=== PATIENT | male | born 1955 | race Caucasian/White ===

== ENCOUNTER 2018-11-16 15:25 | Inpatient (IN) ==
[2018-11-16] MEDS ORDERED: HYDROmorphone INJ 1 MG/ML SYRINGE IV STA ×2 (15:57→18:33)
[2018-11-16] MEDS ORDERED: ONDANSETRON INJ 2 MG/ML 2 ML VIAL IV STA (15:57)
[2018-11-16] MEDS ORDERED: SODIUM CHLORIDE 0.9% 1000ML 1,000 ML IV SCH (16:00)
[2018-11-16 16:34] LABS: Basophils # (auto) 0.02 K/uL (0-0.2); Basophils % (auto) 0.3 %; Eosinophils # (auto) 0.06 K/uL (0-0.5); Eosinophils % (auto) 0.9 %; Hematocrit (blood only) 44.7 % (42-52); Hemoglobin 16.3 g/dL (14.0-18.0); Immature Granulocytes # (auto) 0.02 K/uL (0.00-0.02); Immature Granulocytes % (auto) 0.3 %; Lymphocytes # (auto) 2.02 K/uL (1.2-3.4); Lymphocytes % (auto) 30.4 %; Mean Corpuscular Hgb Conc 36.5 g/dL (32-36); Mean Corpuscular Volume 91.2 fL (80-100); Mean Platelet Volume 9.8 fL (7.4-10.4); Monocytes # (auto) 0.52 K/uL (0.11-0.59); Monocytes % (auto) 7.8 %; Neutrophils # (auto) 4.01 K/uL (1.4-6.5); Neutrophils % (auto) 60.3 %; Platelet Count 149 K/uL (130-400); RDW Coefficient of Variation 12.6 % (11.5-14.5); RDW Standard Deviation 42.2 fL (36.4-46.3); White Blood Count 6.65 K/uL (4.8-10.8)
[2018-11-16 16:51] LABS: Albumin Level 4.2 gm/dl (3.4-5.0); BUN Creatinine Ratio 19.4 (10-20); Bilirubin Direct 0.1 mg/dl (0-0.2); Calcium 9.2 mg/dl (8.5-10.1); Creatinine Clr Calc Pharmacy 62.2 ml/min; Est GFR (Non-African American) 53.5; Potassium 3.5 mmol/L (3.5-5.1)
[2018-11-16 16:54] LABS: Bilirubin,Total 0.6 mg/dl (0.2-1); Total Protein 7.9 gm/dl (6.4-8.2)
[2018-11-16] MEDS ORDERED: IOVERSOL 100ml IV PRN (17:54)
--- NOTE | 2018-11-16 18:17 | CT Scan Report ---
CT OF THE ABDOMEN AND PELVIS WITH CONTRAST CLINICAL HISTORY: Left lower quadrant pain. Hernia. Evaluate for incarceration. COMPARISON STUDY: None. TECHNIQUE: Following IV administration of 94 mL of Optiray-320, axial images of the abdomen and pelvi s were obtained from the lung bases to the proximal femurs. Images were reviewed in the axial, sagitt al, and coronal planes. IV contrast was administered without complication. Automated exposure contro l was utilized for the study. A dose lowering technique was utilized adhering to the principles of A SHANIKA. CT DOSE: 775.69 mGy.cm FINDINGS: Lung bases are unremarkable. The liver, spleen, adrenal glands and pancreas are unremarkabl e. There is no biliary or pancreatic ductal dilatation. There are multiple small stones within each k idney that measure up to 4 mm. There are no ureteral calculi. There is no hydronephrosis. A 1 cm hypo dense lesion within the midpole of the right kidney is too small to characterize but favors a cyst. A loop of small bowel is located within a left inguinal hernia. There is mild uptake small bowel dilat ation. Distal small bowel is decompressed. No right inguinal hernia is present. There are no suspicio us osseous lesions. There is no lymphadenopathy. No bowel wall thickening is noted. There is a small amount of fluid within the left inguinal hernia sac. Major vasculature is patent. IMPRESSION: 1. Left inguinal hernia which contains a loop of small bowel with resultant mild small bowel dilatati on. This represents a small bowel obstruction related to the left inguinal hernia. Small amount of fl uid within the left hernia sac. 2. Bilateral nephrolithiasis. Electronically signed by: Harry Fall M.D. 11/16/2018 6:16 PM
[2018-11-16] MEDS ORDERED: CIPROFLOXACIN 400 MG/200 ML BAG IV STA (19:00)
--- NOTE | 2018-11-16 19:09 | XRay Report ---
XR chest 1V portable CLINICAL HISTORY: preop COMPARISON STUDY: Chest radiograph February 21, 2013. FINDINGS: Lung volumes are mildly diminished. There is no pneumothorax or pleural effusion. Mild biba silar opacities favor atelectasis. There is borderline cardiomegaly without evidence for pulmonary ed juan. Postoperative findings within the cervical spine are partially imaged. IMPRESSION: 1. No acute cardiopulmonary findings. 2. Borderline cardiomegaly. Electronically signed by: Harry Fall M.D. 11/16/2018 7:08 PM
--- NOTE | 2018-11-16 19:18 | History & Physical Report ---
Date of Service November 16, 2018 Assessment & Plan (1) Incarcerated left inguinal hernia: We will plan to proceed with open repair of left inguinal hernia consent was obtained at this time the procedure been explained to the patient extensively including possibility of bowel resection Risk and complications were all explained to home and he would like to proceed accordingly Clinical watch manufacturing supervisor in the OR will personally notified at 755 and they were aware that this is an emergency Chest x-ray and EKG is pending at this time CT scan was reviewed as was his lab Present on Admission?: Yes History of Present Illness This is a 63-year-old gentleman who I was asked to see in the emergency room at approximately 645 this evening for an incarcerated left inguinal hernia that the ER physician was unable to reduce and CT scan which was done at approximately 345 today showed contents of the small bowel in the hernia This gentleman is known to have had a hernia in the left inguinal area for some time in the last 48 hours it began bothering him somewhat yesterday after he took a long walking he had a hard time reducing it was associated with some nausea no emesis and this morning when he woke up around 12:00 AM significant pain and unable to reduce the hernia He stated that he had a regular lunch at that time at the present time he denies any nausea but states that he had an antiemetic Primary Care Provider: Mehreen Noyola DO Allergies Allergy/AdvReac Type Severity Reaction Status Date / Time vancomycin Allergy Severe red man Verified 11/16/18 16:47 syndrome Penicillins Allergy Unknown ITCH Unverified 11/16/18 16:46 Sulfa (Sulfonamide Allergy Unknown ITCH Unverified 11/16/18 16:46 Antibiotics) codeine Allergy itch Verified 11/16/18 16:46 morphine Allergy itch Verified 11/16/18 16:46 piroxicam [From Feldene] Allergy Unknown Verified 11/16/18 16:47 Home Medications Home Medications Medication Instructions Recorded Confirmed Type Unknown Hiv Med 1 tab PO DAILY 11/16/18 11/16/18 History Water Pill 1 tab PO DAILY 11/16/18 11/16/18 History albuterol sulfate [Ventolin HFA] 2 puff INHALATION Q6H PRN 11/16/18 11/16/18 History cholecalciferol (vitamin D3) 1,000 unit PO DAILY 11/16/18 11/16/18 History [Vitamin D3] doxepin 150 mg PO HS 11/16/18 11/16/18 History duloxetine 60 mg PO DAILY 11/16/18 11/16/18 History epinephrine [EpiPen] 0.3 mg IM UD PRN 11/16/18 11/16/18 History lisinopril 10 mg PO DAILY 11/16/18 11/16/18 History loratadine-pseudoephedrine 1 tab PO DAILY 11/16/18 11/16/18 History [Loratadine-D] meloxicam 15 mg PO DAILY 11/16/18 11/16/18 History metformin 0 mg PO BID 11/16/18 11/16/18 History multivitamin-ferrous sulfate [One 0 mg PO DAILY 11/16/18 11/16/18 History Daily Multivitamin-Iron] trazodone 150 mg PO HS 11/16/18 11/16/18 History Past Med/Surg History Social History Preferred Language: Vietnamese Feels Safe at Home: Yes Smoking Status: Never smoker Immunizations: His past medical history included some mild hypertension neck surgery right inguinal hernia repair years ago he has a history of HIV which is appropriately treated and he states is in remission When he had neck surgery he had vancomycin and developed a red man syndrome He has multiple allergies including penicillin and sulfa he states that he could take Cipro Physical Exam Constitutional: WD/WN, vitals as above well developed and well nourished Very large caro una extends into upper chest Eyes: PERRL, conjunctivae normal, anicteric sclerae ENMT: external ear and nose normal, oropharynx normal Neck: trachea midline, no thyromegaly Respiratory: normal respiratory effort, lungs clear to auscultation Cardiovascular: RRR, no murmur, no edema Gastrointestinal (Abdomen): No localized tenderness except a hard to reduce golf ball sized hernia in the left inguinal area appears to be incarcerated at the external ring the testes is normal there is no evidence of cellulitis at this time but it is exquisitely tender to try to reduce it that I am unable to Results & Data Vital Signs (Past 12 Hours) Vital Signs Temp Pulse Pulse Resp BP BP Pulse Ox 11/16/18 17:42 97 H 18 124/85 93 11/16/18 16:38 96 H 15 138/80 95 11/16/18 15:31 36.9 C 99 H 22 142/88 H 98 PG Care Time/CCT Total # of Minutes Spent Total Time Spent with Patient: Total time spent is greater than 50% in coordination of care (as documented) at patient's floor/unit and/or counseling patient:
--- NOTE | 2018-11-16 19:30 | Anesthesiology Consultation ---
Date of Service November 16, 2018 Assessment & Plan Chart Review Chart Review: Acceptable Risk for Surgery and Patient NOT seen in Pre Admission Testing Consults Requested none ASA [id number] Proposed Anesthesia Anesthesia Type: General Risk / Benefits Reviewed With: PT / POA / Parent / Guardian, Accepts Plan and Informed Consent Obtained History Surgery Operation Date: 11/16/18 19:10 Proposed Procedures p Inguinal Hernia Repair - Jarad Go MD Height/Weight Height: 5 ft 9 in Weight: 94.9 kg Allergies Allergy/AdvReac Type Severity Reaction Status Date / Time vancomycin Allergy Severe red man Verified 11/16/18 16:47 syndrome Penicillins Allergy Unknown ITCH Unverified 11/16/18 16:46 Sulfa (Sulfonamide Allergy Unknown ITCH Unverified 11/16/18 16:46 Antibiotics) codeine Allergy itch Verified 11/16/18 16:46 morphine Allergy itch Verified 11/16/18 16:46 piroxicam [From Feldene] Allergy Unknown Verified 11/16/18 16:47 Medications Home Medications Medication Instructions Recorded Confirmed Last Taken Unknown Hiv Med 1 tab PO DAILY 11/16/18 11/16/18 Unknown Water Pill 1 tab PO DAILY 11/16/18 11/16/18 Unknown albuterol sulfate [Ventolin HFA] 2 puff INHALATION Q6H PRN 11/16/18 11/16/18 Unknown cholecalciferol (vitamin D3) 1,000 unit PO DAILY 11/16/18 11/16/18 Unknown [Vitamin D3] doxepin 150 mg PO HS 11/16/18 11/16/18 Unknown duloxetine 60 mg PO DAILY 11/16/18 11/16/18 Unknown epinephrine [EpiPen] 0.3 mg IM UD PRN 11/16/18 11/16/18 Unknown lisinopril 10 mg PO DAILY 11/16/18 11/16/18 Unknown loratadine-pseudoephedrine 1 tab PO DAILY 11/16/18 11/16/18 Unknown [Loratadine-D] meloxicam 15 mg PO DAILY 11/16/18 11/16/18 Unknown metformin 0 mg PO BID 11/16/18 11/16/18 Unknown multivitamin-ferrous sulfate [One 0 mg PO DAILY 11/16/18 11/16/18 Unknown Daily Multivitamin-Iron] trazodone 150 mg PO HS 11/16/18 11/16/18 Unknown Active Medications Generic Name Dose Route Start Last Admin Trade Name Kamila PRN Reason Stop Dose Admin Sodium Chloride 1,000 mls @ 125 mls/hr 11/16/18 16:00 11/16/18 16:21 Nss 1000ml IV 12/16/18 15:59 125 mls/hr .Q8H ROB Administration Ciprofloxacin 400 mg in 200 mls @ 200 mls/hr 11/16/18 19:00 11/16/18 19:16 Cipro IV 11/16/18 19:59 200 mls/hr NOW STA Administration Ioversol 94 ml 11/16/18 17:54 11/16/18 17:55 Optiray 320 100ml IV 11/20/18 17:53 94 ml ONCE PRN Administration Interaction Checking Past Medical History Medical History HIV (human immunodeficiency virus infection) History of inguinal hernia Obese RBBB (right bundle branch block) Exercise / Class Metabolic Activity III < 4 Walking/Shop/Light housework Past Family History Family History Other No significant family history Past Anesthesia History No Hx of Anesthesia Complications and No Family Hx of Anesthesia Complications History of PONV No Hx of PONV and No Hx of Motion Sickness Social History Smoking Status: Never smoker Physical Exam Vital Signs Last Vital Signs Temp 36.9 C 11/16/18 15:31 Pulse 97 H 11/16/18 19:22 Resp 15 11/16/18 19:22 BP 143/86 H 11/16/18 19:22 Pulse Ox 96 11/16/18 19:22 Testing Laboratory Results 11/16/18 16:07 11/16/18 16:07 Electrocardiogram Date: 11/16/18 Findings: + NSR @ (92;LAD;IRBBB) Chest X-Ray Date: 11/16/18 Findings: + NAD, + atelectasis and + cardiomegaly (borderline)
[2018-11-16] MEDS ORDERED: DEXAMETHASONE SOD INJ 4 MG/ML VIAL ONE (19:52)
[2018-11-16] MEDS ORDERED: SUCCINYLCHOLINE CHLORIDE 20 MG/ML 10 ML VIAL ONE (19:52)
[2018-11-16] MEDS ORDERED: LIDOCAINE HCL 2% 2 ML VIAL/AMP(20MG/ML) INFIL ONE (19:52)
[2018-11-16] MEDS ORDERED: ONDANSETRON INJ 2 MG/ML 2 ML VIAL ONE (19:52)
[2018-11-16] MEDS ORDERED: MIDAZOLAM HCL 1 MG/ML 2ML VIAL ONE (19:52)
[2018-11-16] MEDS ORDERED: ePHEDrine sulfate 50 MG/ML AMP ONE (19:52)
[2018-11-16] MEDS ORDERED: NEOSTIGMINE METHYLSULFATE 5 MG/5 ML SYR ONE (19:52)
[2018-11-16] MEDS ORDERED: GLYCOPYRROLATE 0.2 MG/ML VIAL ONE (19:52)
[2018-11-16] MEDS ORDERED: fentaNYL citrate 100 MCG/2 ML VIAL ONE ×2 (19:52)
[2018-11-16] MEDS ORDERED: ROCURONIUM BROMIDE 10 MG/ML 5 ML VIAL ONE (19:52)
[2018-11-16] MEDS ORDERED: PHENYLEPHRINE HCL 10 MG/ML VIAL ONE (19:52)
[2018-11-16] MEDS ORDERED: PROPOFOL IV EMULSION 10 MG/ML 20 ML VIAL IV ONE (19:52)
[2018-11-16] MEDS ORDERED: LIDOCAINE/EPINEPHRINE 1% 20 ML VIAL ONE (20:27)
[2018-11-16] MEDS ORDERED: PROMETHAZINE HCL 12.5 MG in SODIUM CHLORIDE 0.9% 50 ML IV PRN (21:26)
[2018-11-16] MEDS ORDERED: FLUMAZENIL 0.1 MG/1 ML 10 ML VIAL IV PRN (21:26)
[2018-11-16] MEDS ORDERED: ONDANSETRON INJ 2 MG/ML 2 ML VIAL IV PRN (21:26)
[2018-11-16] MEDS ORDERED: NALOXONE HCL 0.4 MG/1 ML VIAL/CARP IV PRN (21:26)
[2018-11-16] MEDS ORDERED: ePHEDrine sulfate 50 MG/ML AMP IV PRN (21:26)
[2018-11-16] MEDS ORDERED: HYDROmorphone INJ 1 MG/ML SYRINGE IV PRN (21:26)
[2018-11-16] MEDS ORDERED: ATROPINE SULFATE 0.1 MG/ML 10ML SYR IV PRN (21:26)
[2018-11-16] MEDS ORDERED: LABETALOL HCL IV 5 MG/ML 20ML IV PRN (21:26)
--- NOTE | 2018-11-16 21:28 | Post Operative Brief Note ---
PG Immediate Post Op with CF Date of Surgery November 16, 2018 Pre & Post Diagnosis Operation Date: 11/16/18 19:10 Pre-Op Diagnosis: PAINFUL HERNIA Post-Op Diagnosis: PAINFUL HERNIA Procedure Operation Date: 11/16/18 19:10 Actual Procedures p Left Inguinal Hernia Repair(Left) - Jarad Go MD Surgeon Jarad Go MD Wrist Hemmer 0 Estimated Blood Loss 10 Findings See Below (left ind hernia and lipoma cord) Specimens Specimen Description: A. Hernia sac and lipoma
[2018-11-16] MEDS ORDERED: ACETAMINOPHEN 325 MG TAB PO PRN (21:39)
[2018-11-16] MEDS ORDERED: LACTATED RINGER'S 1,000 ML IV SCH (21:45)
--- NOTE | 2018-11-16 22:11 | Anesthesiology Progress Note ---
Date of Service November 16, 2018 Anesthesia Post Procedure Vital Signs Vital Signs: Temp Pulse Pulse Resp BP BP Pulse Ox 11/16/18 19:43 99 H 20 103/75 94 11/16/18 19:22 97 H 15 143/86 H 96 11/16/18 17:42 97 H 18 124/85 93 11/16/18 16:38 96 H 15 138/80 95 11/16/18 15:31 36.9 C 99 H 22 142/88 H 98 Pain Intensity Left Groin: Pain Intensity: 3 Transfer of Care Handoff Completed per policy Notes Mental Status: alert / awake / arousable Patient Amnestic to Procedure: Yes Nausea / Vomiting: adequately controlled Pain: adequately controlled Airway Patency, RR, SpO2: stable & adequate BP & HR: stable & adequate Hydration State: stable & adequate Anesthetic Complications: no major complications apparent
--- NOTE | 2018-11-16 22:12 | Operative Report ---
Post Operative Report Pre & Post Diagnosis Operation Date: 11/16/18 19:10 Pre-Op Diagnosis: Incarcerated left inguinal hernia Post-Op Diagnosis; Left indirect hernia lipoma the cord Procedure Operation Date: 11/16/18 19:10 Actual Procedures p Left Inguinal Hernia Repair(Left) open with Marlex mesh and excision lipoma the cord- Jarad Go MD The patient was brought into the operating room theater general endotracheal anesthesia the abdomen was shaved and prepped Betadine scrub solution properly draped systemic biotics have been given a timeout was had patient was identified at this point we noticed that the patient in the left inguinal incarcerated hernia at this time was completely reduced probably general induction therefore we made a incision parallel to the inguinal ligament with preemptive local analgesia 1% Xylocaine 2 fingerbreadths medial to anterior superior iliac crest incision was taken to subcutaneous tissue some prominent vessel was ligated with 2-0 silk onto the external fascia more local was used underneath the fascia which was opened along the course of its fibers prior to doing this we noticed that there was some edema in the tissue at the external ring once we opened this we elevated the cord and structures there is seem to be some edema around the cord and some fatty tissue and also what eventually would be the indirect sac that we have identified this time there was no contents of bowel in the hernial sac which we took and scripted over surrounding tissue and the cord we placed the finger in the abdomen there is seem to be a slightly component of some fatty tissue but there was not any evidence of any murky fluid and certainly no evidence of any ischemic bowel the indirect hernia was ligated at its base with steel silk suture and resected the lipoma was similarly divided at its around the internal ring and ligated with 2-0 silk the indirect hernia and the lipoma was returned and closed the internal ring with 3-0 interrupted silk suture was similarly closed some transversalis fascia and what appeared to have a direct weakness in a similar fashion we then brought in a piece of Marlex mesh and all related to the symphysis pubis shelving portion of the inguinal ligament conjoined tendon superiorly and reconstructed the internal ring the could only accommodate a tip of a hemostat we really did not identify any nervous tissue the external fascia was then closed on top of the cord and the mesh with interrupted 3-0 silk suture 3-0 Vicryl subcutaneous jeri for skin edges dressing was applied procedure was tolerated well estimated blood loss 10 cc Surgeon Jarad Go MD Mortgage Loan Assistant 0 Estimated Blood Loss 10 Findings Consistent with Post-Op Diagnosis Specimens hernia sac, lipoma Description of Procedure merda I attest to the content of the Intraoperative Record and any orders documented therein. Any exceptions are noted below.
[2018-11-17] MEDS ORDERED: LORATADINE/PSEUDOEPHEDRINE 1 TABCR PO SCH (09:00)
[2018-11-17] MEDS ORDERED: LISINOPRIL 10 MG TAB PO SCH (09:00)
--- NOTE | 2018-11-17 11:52 | Emergency Department Note ---
Entered by Charlette Fernandez acting as a scribe for Mark Fajardo History of Present Illness General Chief complaint: Abdominal Pain Stated complaint: PAINFUL HERNIA Time Seen by Provider: 11/16/18 15:52 Source: patient History of Present Illness Onset (ago): day(s) (today) Location: left (groin) Pain Consistency: + other (worsening) Maximum Pain Intensity: 8 Quality: + other (hernia pain) Associated symptoms: + denies other symptoms (hematochezia) and + other (not being able to move bowels); no fever/chills (fever) and no nausea/vomiting The patient is a 63 year old male who presents to the Emergency Room with complaints of worsening left sided groin pain starting today. The patient states that he has had a hernia for some time, but today he started having pain in it He reports that it has progressed and is to the point that it is unbearable. The patient complains of not being able to have a bowel movement for the past 3 days. The patient denies nausea, vomiting, fever, and hematochezia. Home Medications Home Medications Medication Instructions Recorded Confirmed Type Unknown Hiv Med 1 tab PO DAILY 11/16/18 11/16/18 History Water Pill 1 tab PO DAILY 11/16/18 11/16/18 History albuterol sulfate [Ventolin HFA] 2 puff INHALATION Q6H PRN 11/16/18 11/16/18 History cholecalciferol (vitamin D3) 1,000 unit PO DAILY 11/16/18 11/16/18 History [Vitamin D3] doxepin 150 mg PO HS 11/16/18 11/16/18 History duloxetine 60 mg PO DAILY 11/16/18 11/16/18 History epinephrine [EpiPen] 0.3 mg IM UD PRN 11/16/18 11/16/18 History lisinopril 10 mg PO DAILY 11/16/18 11/16/18 History loratadine-pseudoephedrine 1 tab PO DAILY 11/16/18 11/16/18 History [Loratadine-D] meloxicam 15 mg PO DAILY 11/16/18 11/16/18 History metformin 0 mg PO BID 11/16/18 11/16/18 History multivitamin-ferrous sulfate [One 0 mg PO DAILY 11/16/18 11/16/18 History Daily Multivitamin-Iron] trazodone 150 mg PO HS 11/16/18 11/16/18 History Allergies Allergy/AdvReac Type Severity Reaction Status Date / Time vancomycin Allergy Severe red man Verified 11/16/18 16:47 syndrome Penicillins Allergy Unknown ITCH Unverified 11/16/18 16:46 Sulfa (Sulfonamide Allergy Unknown ITCH Unverified 11/16/18 16:46 Antibiotics) codeine Allergy itch Verified 11/16/18 16:46 morphine Allergy itch Verified 11/16/18 16:46 piroxicam [From Feldene] Allergy Unknown Verified 11/16/18 16:47 Past Med/Surg History Medical History HIV (human immunodeficiency virus infection) History of inguinal hernia Obese RBBB (right bundle branch block) Family History Other No significant family history Social History Preferred Language: Arabic Communication Ability: Effective Is Analyst Required: No Beliefs That Will Affect Care: None marital status: Single Current Living Situation: Alone current occupational status: unemployed Other Information That Helps Us Care for You: No Feels Safe at Home: Yes Smoking Status: Never smoker Hx Alcohol Use: Yes Hx Substance Use: No Review of Systems See HPI for pertinent positives & negatives. and A total of 10 systems reviewed and were otherwise negative Physical Exam Vital Signs Vital Signs - 24 hr 11/16/18 15:31 11/16/18 16:38 11/16/18 17:42 Temperature 36.9 C Temperature Source Oral Sepsis Recent Fever Within 48 Hours No Sepsis New/Unexplained Change in Mental Status No Sepsis Action Taken by Nursing No Action Required Pulse Rate 99 H Pulse Rate [Left Finger] 96 H 97 H Pulse Rhythm Regular Pulse Rhythm [Left Finger] Regular Pulse Strength Normal Respiratory Rate 22 15 18 Respiratory Effort / Characteristics Non-Labored Spontaneous Non-Labored Non-Labored Respiratory Depth Normal Normal Normal Respiratory Pattern Regular Regular Regular Blood Pressure 142/88 H Blood Pressure [Left Arm] 138/80 124/85 Blood Pressure Mean 106 Blood Pressure Mean [Left Arm] 99 98 Blood Pressure Position Sitting Pulse Oximetry 98 95 93 Oxygen Delivery Method Room Air Room Air Room Air 11/16/18 19:22 11/16/18 19:43 Temperature Temperature Source Sepsis Recent Fever Within 48 Hours Sepsis New/Unexplained Change in Mental Status Sepsis Action Taken by Nursing Pulse Rate 99 H Pulse Rate [Left Finger] 97 H Pulse Rhythm Pulse Rhythm [Left Finger] Pulse Strength Respiratory Rate 15 20 Respiratory Effort / Characteristics Non-Labored Respiratory Depth Normal Respiratory Pattern Regular Blood Pressure 103/75 Blood Pressure [Left Arm] 143/86 H Blood Pressure Mean Blood Pressure Mean [Left Arm] 105 Blood Pressure Position Pulse Oximetry 96 94 Oxygen Delivery Method Room Air Room Air GENERAL: He is oriented to person, place, and time. He appears well-developed and well-nourished. He does not appear distressed. HENT: Exam performed. - Head: Normocephalic and atraumatic. - Right Ear: External ear normal. No mastoid tenderness. - Left Ear: External ear normal. No mastoid tenderness. - Mouth/Throat: The oropharynx is clear and moist. No trismus in the jaw. No dental abscesses or uvula swelling. No oropharyngeal exudate or tonsillar abscesses. EYES: Conjunctivae and EOM are normal. Pupils are equal, round, and reactive to light. Right eye exhibits no discharge. Left eye exhibits no discharge. No scleral icterus. NECK: Normal range of motion. Neck supple. No JVD present. No spinous process tenderness present. No carotid bruit present. No rigidity. No tracheal deviation and normal range of motion present. No Brudzinski's sign and no Kernig's sign noted. CV: Normal rate, regular rhythm, normal heart sounds and intact distal pulses. There is no peripheral edema. Palpable radial pulses bue. PULM/CHEST: Effort normal and breath sounds normal. No respiratory distress. No stridor. He has no wheezes. He has no rales. - Chest Wall: He exhibits no tenderness. ABD: Left sided inguinal hernia that is tender to touch and I was unable to reduce. MUSC/SKEL: Normal range of motion. There is no peripheral edema, tenderness or deformity. LYMPH: No cervical adenopathy. NEURO: He is alert and oriented to person, place, and time. He has normal strength. No cranial nerve deficit or sensory deficit. Coordination and gait normal. GCS eye subscore is 4. GCS verbal subscore is 5. GCS motor subscore is 6. Cerebellar tests wnl. SKIN: Skin is warm and dry. He is not diaphoretic. PSYCH: He has a normal mood and affect. Behavior is normal. Judgment and thought content normal. Course 1553: Past medical records reviewed. The patient was evaluated in room B8. A complete history and physical exam was performed. 1826: I discussed the patient's case with Dr. Go- General Surgery. He will evaluate the patient for further management. 1833: CT shows an incarcerated hernia with resultant small bowel obstruction. I discussed the case with Dr. Go and he is going to evaluate the patient for surgery. Consultations Consultation #1: I discussed the patient's case with Dr. Go- Surgery. He will evaluate the patient for further management. Time: 18:26 Administered Medications Acetaminophen (Tylenol) 650 mg PO Q6H PRN PRN Reason: MILD Pain (Scale 1,2,3) Stop: 12/16/18 21:38 Last Admin: 11/17/18 07:32 Dose: 650 mg Documented by: [id number] Lactated Ringer's (Lr) 1,000 mls @ 75 mls/hr IV .[id number] [facility] Stop: 12/16/18 21:44 Last Admin: 11/17/18 01:45 Dose: 75 mls/hr Documented by: [id number] Ioversol (Optiray 320 100ml) 94 ml IV ONCE PRN PRN Reason: Interaction Checking Stop: 11/20/18 17:53 Last Admin: 11/16/18 17:55 Dose: 94 ml Documented by: [id number] Lisinopril (Zestril) 10 mg PO DAILY [facility] Stop: 12/17/18 08:59 Last Admin: 11/17/18 09:11 Dose: 10 mg Documented by: [id number] Loratadine/Pseudoephedrine Sulfate (Claritin-D 24 Hour) 1 tab PO DAILY ROB Stop: 12/17/18 08:59 Last Admin: 11/17/18 09:11 Dose: 1 tab Documented by: [id number] Discontinued Medications Hydromorphone HCl (Dilaudid) 1 mg IV NOW STA Stop: 11/16/18 15:58 Last Admin: 11/16/18 16:34 Dose: 1 mg Documented by: [id number] Hydromorphone HCl (Dilaudid) 1 mg IV NOW STA Stop: 11/16/18 18:34 Last Admin: 11/16/18 19:16 Dose: 1 mg Documented by: [id number] Sodium Chloride (Nss 1000ml) 1,000 mls @ 125 mls/hr IV .Q8H ROB Stop: 12/16/18 15:59 Last Infusion: 11/16/18 23:19 Dose: 0 mls/hr Documented by: [id number] Admin: 11/16/18 16:21 Dose: 125 mls/hr Documented by: [id number] Ciprofloxacin (Cipro) 400 mg in 200 mls @ 200 mls/hr IV NOW STA Stop: 11/16/18 19:59 Last Infusion: 11/16/18 23:03 Dose: 0 mls/hr Documented by: [id number] Admin: 11/16/18 19:16 Dose: 200 mls/hr Documented by: [id number] Lidocaine/Epinephrine (Xylocaine/Epinephrine 1%) Confirm Administered Dose 20 ml .ROUTE .STK-MED ONE Stop: 11/16/18 20:28 Last Admin: 11/16/18 20:28 Dose: 12 ml Documented by: [id number] Ondansetron HCl (Zofran) 4 mg IV NOW STA Stop: 11/16/18 15:58 Last Admin: 11/16/18 16:34 Dose: 4 mg Documented by: [id number] Medical Decision Making Medical Records Attestation: I reviewed the patient's medical records. Home Medications Current Medication List: was personally reviewed by me Laboratory Data Attestation: I reviewed the patient's lab results. Result diagrams: 11/16/18 16:07 11/16/18 16:07 Lab Results 11/16/18 11/16/18 11/16/18 Range/Units 16:07 16:07 16:07 WBC 6.65 (4.8-10.8) K/uL RBC 4.90 (4.7-6.1) M/uL Hgb 16.3 (14.0-18.0) g/dL Hct 44.7 (42-52) % MCV 91.2 (80-100) fL MCH 33.3 (25-34) pg MCHC 36.5 H (32-36) g/dL RDW Std Deviation 42.2 (36.4-46.3) fL RDW Coeff of Terra 12.6 (11.5-14.5) % Plt Count 149 (130-400) K/uL MPV 9.8 (7.4-10.4) fL Immature Gran % (Auto) 0.3 % Neut % (Auto) 60.3 % Lymph % (Auto) 30.4 % Greer % (Auto) 7.8 % Eos % (Auto) 0.9 % Baso % (Auto) 0.3 % Immature Gran # (Auto) 0.02 (0.00-0.02) K/uL Neut # (Auto) 4.01 (1.4-6.5) K/uL Lymph # (Auto) 2.02 (1.2-3.4) K/uL Greer # (Auto) 0.52 (0.11-0.59) K/uL Eos # (Auto) 0.06 (0-0.5) K/uL Baso # (Auto) 0.02 (0-0.2) K/uL Sodium 136 (136-145) mmol/L Potassium 3.5 (3.5-5.1) mmol/L Chloride 96 L (98-107) mmol/L Carbon Dioxide 35 H (21-32) mmol/L Anion Gap 4.0 (3-11) BUN 27 H (7-18) mg/dl Creatinine 1.40 (0.6-1.4) mg/dl Est Cr Clr Drug Dosing 62.2 ml/min Est GFR ( Amer) 62.0 Est GFR (Non-Af Amer) 53.5 BUN/Creatinine Ratio 19.4 (10-20) Glucose 141 H (70-99) mg/dl Lactate 2.1 H* (0.4-2.0) mmol/L Calcium 9.2 (8.5-10.1) mg/dl Total Bilirubin 0.6 (0.2-1) mg/dl Direct Bilirubin 0.1 (0-0.2) mg/dl AST 15 (15-37) U/L ALT 25 (12-78) U/L Alkaline Phosphatase 114 (45-117) U/L Total Protein 7.9 (6.4-8.2) gm/dl Albumin 4.2 (3.4-5.0) gm/dl Lipase 291 (73-393) U/L Imaging Data Radiologist's Impression: Radiology results as stated below per my review and the radiologist's interpretation: XR chest 1V portable CLINICAL HISTORY: preop COMPARISON STUDY: Chest radiograph February 21, 2013. FINDINGS: Lung volumes are mildly diminished. There is no pneumothorax or pleural effusion. Mild bibasilar opacities favor atelectasis. There is borderline cardiomegaly without evidence for pulmonary edema. Postoperative findings within the cervical spine are partially imaged. IMPRESSION: 1. No acute cardiopulmonary findings. 2. Borderline cardiomegaly. Electronically signed by: Harry Fall M.D. 11/16/2018 7:[address] OF THE ABDOMEN AND PELVIS WITH CONTRAST CLINICAL HISTORY: Left lower quadrant pain. Hernia. Evaluate for incarceration. COMPARISON STUDY: None. TECHNIQUE: Following IV administration of 94 mL of Optiray-320, axial images of the abdomen and pelvis were obtained from the lung bases to the proximal femurs. Images were reviewed in the axial, sagittal, and coronal planes. IV contrast was administered without complication. Automated exposure control was utilized for the study. A dose lowering technique was utilized adhering to the principles of ALARA. CT DOSE: 775.69 mGy.cm FINDINGS: Lung bases are unremarkable. The liver, spleen, adrenal glands and pancreas are unremarkable. There is no biliary or pancreatic ductal dilatation. There are multiple small stones within each kidney that measure up to 4 mm. There are no ureteral calculi. There is no hydronephrosis. A 1 cm hypodense lesion within the midpole of the right kidney is too small to characterize but favors a cyst. A loop of small bowel is located within a left inguinal hernia. There is mild uptake small bowel dilatation. Distal small bowel is decompressed. No right inguinal hernia is present. There are no suspicious osseous lesions. There is no lymphadenopathy. No bowel wall thickening is noted. There is a small amount of fluid within the left inguinal hernia sac. Major vasculature is patent. IMPRESSION: 1. Left inguinal hernia which contains a loop of small bowel with resultant mild small bowel dilatation. This represents a small bowel obstruction related to the left inguinal hernia. Small amount of fluid within the left hernia sac. 2. Bilateral nephrolithiasis. Electronically signed by: Harry Fall M.D. 11/16/2018 6:16 PM ECG Data Attestation: I personally reviewed and interpreted this ECG as follows: Indication: other (pre op) Rate (beats per minute): 92 Rhythm: sinus rhythm Findings: + other ([place], QRS, and QT-c intervals are within normal limits) and + RBBB; no ST depression and no ST elevation Blood Pressure Blood Pressure Findings: Elevated blood pressure Blood Pressure Disposition: elevated BP felt to be situational MDM Narrative 1553: Past medical records reviewed. The patient was evaluated in room B8. A complete history and physical exam was performed. 1826: I discussed the patient's case with Dr. Go- General Surgery. He will evaluate the patient for further management. 1833: CT shows an incarcerated hernia with resultant small bowel obstruction. I discussed the case with Dr. Go and he is going to evaluate the patient for surgery. Impression & Plan Incarcerated left inguinal hernia, SBO (small bowel obstruction) Discharge Plan Visit Data *Final* Discharge Date/Time: 11/16/18 19:46 Chief Complaint: Abdominal Pain Stated Complaint: PAINFUL HERNIA ED Provider: Mark Fajardo Discharge Problem: Incarcerated left inguinal hernia, SBO (small bowel obstruction) Patient Disposition: Being Evaluated by Surgeon Discharge Instructions Interventions: ED Discharge Assessment Last Done: 11/16/18 19:43 The scribe's documentation has been prepared under my direction and personally reviewed by me in its entirety. I confirm that the note above accurately reflects all work, treatment, procedures, and medical decision making performed by me.
--- NOTE | 2018-11-17 13:26 | Surgery Progress Note ---
Date of Service November 17, 2018 Assessment & Plan (1) Incarcerated left inguinal hernia: POD#1 open left inguinal hernia repair with mesh Voiding spontaneously Pain well controlled with prn tylenol Diet advanced Surgical incision c/d/i Will plan for discharge to home today Patient seen and examined with Dr. Go Subjective Patient feeling well without complaints. Pain well controlled with Tylenol. He is voiding on his own. Hoping to go home. Physical Exam Physical Exam: awake/alert Gastrointestinal (Abdomen): Inspection/Auscultation: + abdominal surgical incision (c/d/i ) Results & Data Vital Signs (Past 12 Hours) Vital Signs Temp Pulse Resp BP Pulse Ox 11/17/18 12:48 36.6 C 101 H 16 124/62 94 11/17/18 11:30 36.6 C 101 H 16 124/62 94 11/17/18 07:48 36.6 C 106 H 16 125/65 90 11/17/18 04:47 36.7 C 111 H 18 118/61 90 11/17/18 01:43 36.7 C 110 H 20 115/65 91 PG Care Time/CCT Total # of Minutes Spent Total Time Spent with Patient: Total time spent is greater than 50% in coordination of care (as documented) at patient's floor/unit and/or counseling patient:
--- NOTE | 2018-11-17 17:13 | Discharge Summary ---
Date of Service November 17, 2018 Principal Diagnosis Incarcerated left inguinal hernia Discharge Exam awake/alert Respiratory normal respiratory effort; no respiratory distress Gastrointestinal (Abdomen) Inspection/Auscultation: + abdominal surgical incision (c/d/i with surgical dressing overtop) Discharge Data Allergies Allergy/AdvReac Type Severity Reaction Status Date / Time vancomycin Allergy Severe red man Verified 11/16/18 16:47 syndrome Penicillins Allergy Unknown ITCH Unverified 11/16/18 16:46 Sulfa (Sulfonamide Allergy Unknown ITCH Unverified 11/16/18 16:46 Antibiotics) codeine Allergy itch Verified 11/16/18 16:46 morphine Allergy itch Verified 11/16/18 16:46 piroxicam [From Feldene] Allergy Unknown Verified 11/16/18 16:47 Consultations 11/16/18 18:28 ED Decision to Admit Stat Procedures Performed Operation Date: 11/16/18 19:10 Actual Procedures p Left Inguinal Hernia Repair(Left) - Jarad Go MD Ordered Studies 11/16/18 15:57 CT abd pelvis IV con only Stat Hospital Course (1) Incarcerated left inguinal hernia: This is a 63y M who presented to the [facility] ED on the evening of 11/16/18 with complaints of left inguinal pain. The patient is known to have a left inguinal hernia that started bothering him yesterday after taking a walk. In the ED patient underwent a CT scan that revealed a left inguinal hernia containing a loop of small bowel with mild small bowel dilation, thus representing a small bowel obstruction. Hernia was irreducible as patient very tender. Decision was made to take the patient emergently to the OR for surgical intervention. Patient underwent an open left inguinal hernia repair with mesh with Dr. Go. The patient tolerated the procedure well, see operative report for full details. The patient recovered in the PACU and then was transferred to the surgical nursing floor for observation overnight. Patient able to void spontaneously post procedure. POD#1 patient's diet was advanced to regular of which he tolerated well and pain was controlled with PO tylenol. Surgical incision clean, dry, and intact. On POD#1 (11/17) the patient was deemed stable for discharge to home with instructions to follow up with Dr. Go within 1-2 weeks for a post op check. Total Time Total Time Spent Total Time Spent (In Minutes): 15 Discharge Plan Discharge Items Patient Disposition: Home - Self-Care Reason For Visit: PAINFUL HERNIA Discharge Diagnosis: open inguinal hernia repair Activity: Per Instructions section Lifting: No more than 10 pounds Bathing Comment: you may shower starting tomorrow after you remove your surgical bandage Exercise/Sports: Wait until after follow-up appointment Exercise Comment: light activity for 3 weeks Driving/Machine Use: Resume 3 days after discharge Non-emergency contact: Surgeon Call non-emergency contact if: you have any medication questions, your symptoms worsen, your pain is not controlled, your pain is worsening, you have a fever, your temperature is above 101.5, your wound has increased redness, your wound has increased drainage and your wound pain has increased Follow-up/Referrals: Jarad Go MD [Surgeon] - (Please schedule follow up in clinic wi thin 1-2 weeks. You may call the office sooner if you have any questions/concerns) Mehreen Noyola DO [Primary Care Provider] - Diet: Regular Addtl Attending Provider Instructions: You may continue to take Tylenol over the counter if needed for pain Pending Studies at Discharge: No Stand-Alone Forms: Call Back Authorization, [facility] Medications and DC Order Prescriptions: Continued meloxicam 15 mg Tablet 15 mg PO DAILY RF: 0 loratadine-pseudoephedrine [Loratadine-D] 10-240 mg Tablet Extended Release 24 Hr 1 tab PO DAILY RF: 0 trazodone 150 mg Tablet 150 mg PO HS RF: 0 metformin 1,000 mg Tablet PO BID RF: 0 lisinopril 10 mg Tablet 10 mg PO DAILY RF: 0 epinephrine [EpiPen] 0.3 mg/0.3 mL Auto-Injector 0.3 mg IM UD PRN (Reason: Allergic Reaction) RF: 0 albuterol sulfate [Ventolin HFA] 90 mcg/actuation Hfa Aerosol Inhaler 2 puff INHALATION Q6H PRN (Reason: Shortness Of Breath Or Wheezing) RF: 0 doxepin 150 mg Capsule 150 mg PO HS RF: 0 cholecalciferol (vitamin D3) [Vitamin D3] 1,000 unit Capsule 1,000 unit PO DAILY RF: 0 duloxetine 60 mg Capsule,Delayed Release(Dr/Ec) 60 mg PO DAILY RF: 0 One Daily Multivitamin-Iron 18 mg iron Tablet PO DAILY RF: 0 Unknown Hiv Med 1 tab PO DAILY RF: 0 Water Pill 1 tab PO DAILY RF: 0 Discharge Orders: Discharge Order (Routine); Ordered 11/17/18 Ordered By: Diane Moy/Other Patient Handouts: Surgery Prevent DVT After Admission Data Admit Date/Time: 11/16/18 21:40 Attending Provider: Jarad Go Admit Provider: Jarad Go Primary Care Provider: Mehreen Noyola Other Providers: Jarad Go Other Interventions: Discharge Summary Assessment (RN) Last Done: 11/17/18 12:48 DC Date/Time DO NOT enter until pt leaves facility: 11/17/18 14:50
== END 2018-11-17 14:50 | disposition home or self-care (01) | DRG 352 ==
LOC: ED 15:25 → OR 19:46 → 3N 21:40